=== PATIENT | female | born 1945 | race Caucasian/White ===

== ENCOUNTER 2019-03-04 08:32 | Inpatient (IN) | payer OTHER ==
[~2019-03-04] VITALS: Ht 149.9 cm; Wt 72.0 kg
[~2019-03-04 08:32] MED LIST: "\\\"WATER PILL\\\""; ALBU90OI INH; BP MEDICATION; BUSP5 PO; DILTIAZEM 24HR240 M4 PO; ESTR1 PO; Estradiol0.5 MG PO; FLUT1DIS8 INH; FURO40 PO; MONTELUKAST SOD10 MG PO; Mucinex600 MG PO; OMEPRAZOLE20 MG PO; PRED20 PO; SIME80CH PO; TIOT18 INH
[2019-03-04 09:28] LABS: Hematocrit 40.4 % (33.0-51.0); Hemoglobin 13.6 g/dL (11.5-16.0); Mean Corpuscular HGB 30.8 pg (26.0-34.0); Mean Corpuscular HGB Conc 33.7 g/dL (31.5-36.5); Mean Corpuscular Volume 91 fL (80-100); Mean Platelet Volume 9.5 fL (9.1-12.4); Platelet Count 225 K/mm3 (150-400); RDW Coefficient Variation 13.2 % (11.7-14.2); RDW Standard Deviation 44.6 fL (35.1-46.3); Red Blood Cell Count 4.42 M/mm3 (3.80-5.20); White Blood Cell Count 28.51 K/mm3 (4.00-11.30)
[2019-03-04 09:45] LABS: Albumin/Globulin Ratio 0.9 (0.8-1.8); Bilirubin, Total 1.1 mg/dL (0.1-1.0); Bun/Creatinine Ratio 11.4 (12.0-20.0); Calcium, Blood 8.7 mg/dL (8.5-10.1); Creatinine, Blood 1.05 mg/dL (0.40-1.00); Globulin, Blood 3.4 g/dL (2.2-4.0); Potassium, Blood 3.1 mmol/L (3.5-5.5); Total Protein, Blood 6.4 g/dL (6.4-8.2)
[2019-03-04 09:50] LABS: BAND PERCENT MAN 20 % (0-8); BASOPHILS PERCENT MAN 0 % (0-2); EOSINOPHILS PERCENT MAN 0 % (0-6); LYMPHOCYTES ABSOLUTE MAN 1.14 K/mm3 (0.84-5.20); LYMPHOCYTES PERCENT MAN 4 % (21-46); MONOCYTES ABSOLUTE MAN 1.42 K/mm3 (0.16-1.47); MONOCYTES PERCENT MAN 5 % (4-13); NEUTROPHILS ABSOLUTE MAN 25.94 K/mm3 (1.96-9.15); SEG NEUTROPHILS PERCENT MAN 71 % (41-73); TOTAL CELLS COUNTED 100
[2019-03-04] MEDS ORDERED: AZIT250 PO (12:28)
--- NOTE | 2019-03-04 13:00 | NUR ---
PT ARRIVES TO UNIT FROM ER AT 1245. PT ON BIPAP 01/18 45%. A&OX 4. ANSWERS QUESTIONS APPROPRIATELY. FOLLOWS COMMANDS. DENIES PAIN. REPORTS SOB IMPROVED SINCE WEARING BIPAP MASK. REPORTS HOME O2 USE AT NIGHT, 2L. HX OF COPD. PT SPEAKING IN SHORT SENTANCES, BECAME TACHYPNEIC AND INCREASED SOB WHEN TAKEN OFF BIPAP FOR TRANSFER TO BED FROM [facility]. LUNGS COARSE THROUGHOUT c RHONCI. WET COUGH NOTED. DISHA. VSS. WILL CONTINUE TO MONITOR.
[2019-03-04 17:34] LABS: Influenza A Negative (NEGATIVE); Influenza B Negative (NEGATIVE)
--- NOTE | 2019-03-04 18:10 | NUR ---
SHIFT SUMMARY PT REMAINS ON BIPAP 01/18 35%. ATTEMPTED TO TAKE PT OFF FOR SHORT PERIOD OF TIME, PT REQUESTING TO REPLACE BIPAP AFTER LESS THAN 5 MINUTES. LUNGS REMAIN COARSE c RHOCHI. NON PRODUCTIVE COUGH. SPEAKING IN FULL SENTANCES. REPORTS SOB IMPROVED c BIPAP. ASSISTED PT TO GET TO BEDSIDE COMMODE THIS SHIFT. PT TOLERATED WELL. FAMILY AT BEDSIDE. VSS. REPORT TO ONCOMING NURSE.
--- NOTE | 2019-03-04 19:47 | NUR ---
ASSUME CARE RECEIVED REPORT FROM MARITZA SEBASTIAN. PT PRESENTS IN BED WITH BIPAP ON. 01/26 35% WITH SATS ABOVE 925. A&OX4. TEMP 98. NSR ON MONITOR. VSS. L WRIST IV FLUSHED AND DRAWS BACK, WORKING WELL. R AC IV INFUSING NS AT 150/HR. PT ASKED TO BE REPOSITIONED TO SLEEP AND FAMILY LEFT BEDSIDE. WILL CONTINUE TO MONITOR.
--- NOTE | 2019-03-04 21:53 | NUR ---
ASSUMED CARE OF PT PT SLEEPING WITH BIPAP ON. BIPAP SETTINGS 01/18 RATE 14 FIO2 35%. VSS. PT MOVING AND TURNING SELF IN BED.
--- NOTE | 2019-03-05 00:10 | NUR ---
REASSESSMENT PT RESTING QUIETLY ON THE BIPAP. UP TO BSC WITH ONE ASSIST. VOIDED DARK NENA URINE. BACK TO BED. PT CONT TO USE BIPAP WHILE GETTING UP. PT STATES,"IT HELPS ME NOT GET SO WINDED". DENIES PAIN OR DISCOMFORT. LUNGS COARSE AND DECREASED. RESP EVEN AND NONLABORED. BIPAP REMOVED FOR ORAL CARE THAN REPLACED. SOLUMEDROL GIVEN AND FLAGYL STARTED. PT BACK TO SLEEP QUICKLY.
[2019-03-05 03:43] LABS: BASOPHILS ABSOLUTE AUTO 0.04 K/mm3 (0.00-0.23); BASOPHILS PERCENT AUTO 0 % (0-2); EOSINOPHILS PERCENT AUTO 0 % (0-6); Hematocrit 34.7 % (33.0-51.0); Hemoglobin 11.6 g/dL (11.5-16.0); IMMATURE GRAN ABSOLUTE AUTO 0.36 K/mm3 (0.00-0.10); IMMATURE GRAN PERCENT AUTO 2 % (0-1); LYMPHOCYTES ABSOLUTE AUTO 0.35 K/mm3 (0.84-5.20); LYMPHOCYTES PERCENT AUTO 2 % (21-46); MONOCYTES PERCENT AUTO 4 % (4-13); Mean Corpuscular HGB 30.8 pg (26.0-34.0); Mean Corpuscular HGB Conc 33.4 g/dL (31.5-36.5); Mean Corpuscular Volume 92 fL (80-100); Mean Platelet Volume 9.8 fL (9.1-12.4); NEUTROPHILS PERCENT AUTO 93 % (41-73); Platelet Count 190 K/mm3 (150-400); RDW Coefficient Variation 13.1 % (11.7-14.2); RDW Standard Deviation 44.2 fL (35.1-46.3); Red Blood Cell Count 3.77 M/mm3 (3.80-5.20); White Blood Cell Count 21.95 K/mm3 (4.00-11.30)
--- NOTE | 2019-03-05 03:46 | NUR ---
REASSESSMENT PT RESTING QUIETLY WITH BIPAP ON. VSS. REPOSITIONED AND MOUTH CARE DONE. LABS DRAWN. PT DENEIS PAIN OR DISCOMFORT. LUNGS CONT COARSE.
[2019-03-05 04:08] LABS: Alanine Aminotransfer (ALT/SGP 17 U/L (12-78); Albumin, Blood 2.5 g/dL (3.4-5.0); Albumin/Globulin Ratio 0.7 (0.8-1.8); Alk Phos 69 U/L (50-136); Anion Gap 6 mmol/L (6-16); Aspartate Aminotrans (AST/SGOT 10 U/L (12-37); Bilirubin, Total 0.5 mg/dL (0.1-1.0); Blood Urea Nitrogen 11 mg/dL (8-24); Bun/Creatinine Ratio 19.2 (12.0-20.0); CO2, Blood 24 mmol/L (21-32); Calcium, Blood 8.5 mg/dL (8.5-10.1); Chloride, Blood 112 mmol/L (98-108); Creatinine, Blood 0.57 mg/dL (0.40-1.00); Globulin, Blood 3.4 g/dL (2.2-4.0); Glomerular Filtration Rate >60 (60-); Glucose, Blood 127 mg/dL (70-99); Potassium, Blood 3.5 mmol/L (3.5-5.5); Sodium, Blood 142 mmol/L (136-145); Total Protein, Blood 5.9 g/dL (6.4-8.2); Vancomycin, Random 5.4 ug/mL
--- NOTE | 2019-03-05 06:31 | NUR ---
SHIFT SUMMARY ASSUMED CARE OF PT AT 2200. PT RESTED QUIETLY DURING THE NIGHT WHILE USING THE BIPAP. BIPAP SETTINGS / RATE OF 14 FIO2 35%. LUNGS REMAIN COARSE AND DECREASED IN THE BASES. PT UP TO BSC WITH STANDBY ASSIST AND BIPAP. VSS. REPORT TO ON COMING NURSE
--- NOTE | 2019-03-05 08:00 | NUR ---
Received report from Tracy SALAS. Patient sleeping with BIPAP in place/6 at 25% and sats upper 90%s. She awakens to verbal stimuli and is able to communicate her needs. She stateted she slept really well last nite. She has 18ga RAC dressing intact and site WNL's and is infusing NS at 100ml/hr and NS TKO with intermitent Abx.. She has SCD's to calves bilaterally. She also has FS LW dressing intact and site WNL's and is flushed and SL'd.
--- NOTE | 2019-03-05 11:46 | NUR ---
Dr Mills by to see patient, RT trailing on RA. She has been changed to medical status no tele and has regular diet. VSS. No other significant changes. Medicated per mar for arthritic pain.
--- NOTE | 2019-03-05 13:59 | NUR ---
Patient had tolerated RA by Rt for short period and asked to be placed back on M series BIPAP and tolerated well. VSS. Family as been in and out of room between patient resting. She will be going to [facility]. calling for report. NS at 150ml/hr.
--- NOTE | 2019-03-05 14:46 | NUR ---
Patient transfered to [place] [id number] in wheelchair on 2L O2 via NC and sats mid 90%'s. VSS. Her belongings taken by daughter to room. Took M series up to room and told Sherrill SALAS tell tell RN that NS at 150ml/hr needs to be started as her liter was almost done and disconnected prior to going upstairs.
--- NOTE | 2019-03-05 18:28 | NUR ---
SHIFT SUMMARY PATIENT IS DOING WELL IN THE ROOM. SHE IS VISITING WITH FAMILY. ABLE TO MAKE HER NEEDS KNOWN. NO ACUTE ISSUES.
--- NOTE | 2019-03-06 06:51 | NUR ---
Pt. gave student permission for care on 2019 at 2019 0640.
--- NOTE | 2019-03-06 07:58 | NUR ---
NOTED PATIENT HR TO BE IN 120'S. OXYGEN IN 80'S. PLACED PATIENT ON BIPAP NOTIFIED RT. REEVALUATED PATIENT AND NOTED THE HR TO BE AT 105, O2 AT 94%. RT GIVING BREATHING TREATMENT.
--- NOTE | 2019-03-06 08:02 | NUR ---
PT was transferred from ICU yesterday where she has Pneumonia and is on antibiotics to tx, IV fluids at 150 ml hr, Boixx with pulse oximetry. Desatted this AM despite 2 l NC to 84 %. Pulse tachycardic with hypoxia. Bipap applied with helpful effect. Neb tx and therapy per RT. Family at bedside supportive.
[2019-03-06 08:22] LABS: BASOPHILS ABSOLUTE AUTO 0.03 K/mm3 (0.00-0.23); BASOPHILS PERCENT AUTO 0 % (0-2); EOSINOPHILS PERCENT AUTO 0 % (0-6); Hematocrit 33.6 % (33.0-51.0); IMMATURE GRAN ABSOLUTE AUTO 0.24 K/mm3 (0.00-0.10); IMMATURE GRAN PERCENT AUTO 1 % (0-1); LYMPHOCYTES ABSOLUTE AUTO 0.33 K/mm3 (0.84-5.20); LYMPHOCYTES PERCENT AUTO 2 % (21-46); MONOCYTES ABSOLUTE AUTO 0.71 K/mm3 (0.16-1.47); MONOCYTES PERCENT AUTO 4 % (4-13); Mean Corpuscular HGB 30.3 pg (26.0-34.0); Mean Corpuscular HGB Conc 32.7 g/dL (31.5-36.5); Mean Corpuscular Volume 93 fL (80-100); Mean Platelet Volume 10.2 fL (9.1-12.4); NEUTROPHILS ABSOLUTE AUTO 19.06 K/mm3 (1.96-9.15); NEUTROPHILS PERCENT AUTO 94 % (41-73); Platelet Count 207 K/mm3 (150-400); RDW Coefficient Variation 13.2 % (11.7-14.2); RDW Standard Deviation 45.2 fL (35.1-46.3); Red Blood Cell Count 3.63 M/mm3 (3.80-5.20); White Blood Cell Count 20.37 K/mm3 (4.00-11.30)
[2019-03-06 08:48] LABS: Vancomycin, Trough 10.2 ug/mL (5.0-10.0)
[2019-03-06 09:00] LABS: Anion Gap 10 mmol/L (6-16); Blood Urea Nitrogen 15 mg/dL (8-24); Bun/Creatinine Ratio 33.3 (12.0-20.0); CO2, Blood 19 mmol/L (21-32); Calcium, Blood 8.9 mg/dL (8.5-10.1); Chloride, Blood 115 mmol/L (98-108); Creatinine, Blood 0.45 mg/dL (0.40-1.00); Glomerular Filtration Rate >60 (60-); Glucose, Blood 121 mg/dL (70-99); Potassium, Blood 3.5 mmol/L (3.5-5.5); Sodium, Blood 144 mmol/L (136-145)
--- NOTE | 2019-03-06 18:05 | NUR ---
SHIFT SUMMARY PATIENT HAS BEEN ON 02 THROUGHOUT THE DAY. SHE HAS WORKED WITH RT. PATIENT IS TOLERATING THIS WELL. FAMILY IS AT BEDSIDE THROUGHOUT THE DAY. PATIENT GETS UP INDEPENDENTLY, AMBULATES SELF TO THE BATHROOM WITHOUT ISSUES.
--- NOTE | 2019-03-06 21:13 | NUR ---
1939 PT REQUESTING SLEEPING MEDICATION THAT SHE TAKES AT HOME, ALEJANDRA CALLED THE PERSON AT THE PT'S HOUSE WHO LOOKED AT THE BOTTLE AND SAID IT WAS BENADRYL [address] WILL SPEAK TO [address] AND GET ORDERED. PT DENIES NEED FOR ANYTHING ELSE AT THIS TIME. CALL LIGHT IN REACH. VISITORS IN ROOM.
--- NOTE | 2019-03-06 21:14 | NUR ---
2039 PT SITTING IN CHAIR AT BEDSIDE. REPORTS PAIN IN R SIDE, ULTRAM GIVEN. SLEEPING MEDICATION GIVEN. PT REQUESTED AND RECIEVED ICE WATER. PT REPORTS SOB WITH EXERTION, ON 3L O2 NC AT 94%. PRODUCTIVE COUGH, NOT SEEN BY ME YET, PT REPORTS IT IS PINK TINGED. SPUTUM SAMPLE THAT WAS SENT EARLIER WAS NOT ADEQUATE, NEED TO COLLECT ANOTHER SPECIMEN, PT AWARE, SAMPLE CUP GIVEN TO PT, SETUP TECHNICIAN AWARE. SCD'S IN ROOM BUT NOT ON PT AT THIS TIME, SHE IS IN BEDSIDE CHAIR AND WANTS THEM BACK ON WHEN SHE GETS BACK IN BED. IS IN ROOM. NO OTHER APPARENT SIGNS OF DISTRESS. CALL LIGHT IS IN REACH. VISITORS IN ROOM.
--- NOTE | 2019-03-06 22:11 | NUR ---
PT REPORTED IV WAS LEAKING. DC'D IV. RESTARTED NEW IV, PAIGE 22G, PT TOLERATED WELL. USED US TO START. PT UP TO BATHROOM WITH DAUGHTER NOW. NO OTHER APPARENT SIGNS OF DISTRESS. WILL CONT. TO MONITOR SITE IV WAS DC'D FROM.
--- NOTE | 2019-03-07 00:11 | NUR ---
ASSISTED PT TO BATHROOM AND BACK TO BED AGAIN. NO APPARENT SIGNS OF DISTRESS. CALL LIGHT IS IN REACH. VISITOR IN ROOM. PT DENIES NEED FOR ANYTHING ELSE AT THIS TIME.
--- NOTE | 2019-03-07 03:09 | NUR ---
0200 PT LYING IN BED, AWAKE, NO APPARENT SIGNS OF DISTRESS. CALL LIGHT IS IN REACH. VISITOR IN ROOM.
--- NOTE | 2019-03-07 03:10 | NUR ---
PT AAO X 4, ON 3L O2 NC, WEARS BIPAP AT NOC AND PRN. PAIN IN R SIDE, GOT ULTRAM AT HS. SOB WITH EXERTION, BIOX IS 94%. IV WAS LEAKING, DC'D AND RESTARTED AT HS. SCD'S, INCENTIVE SPIROMETER, CONT. BIOX. NEEDS SPUTUM CX. LAST BM 03/02, PT DRANK SOME PRUNE JUICE AT HS, NO RESULTS YET. NO BOWEL CARE ORDERED AT THIS TIME, WILL ATTEMPT TO GET SOME WHEN SOMEONE TALKS TO THE DR NEXT. PT STATED THAT SHE HAS A SLOW GI TRACT AND THAT THIS IS HER NORMAL FOR BM'S, I EXPLAINED TO THE PT THAT WE START TO GET WORRIED AND GIVE MEDS WHEN IT HAS BEEN MORE THAN 3 DAYS.
--- NOTE | 2019-03-07 04:33 | NUR ---
PT LYING IN BED, AWAKE. PT REQUESTED SCD'S BE REMOVED, I REMOVED THEM. NO OTHER APPARENT SIGNS OF DISTRESS. VISITOR IN ROOM. PT DENIES NEED FOR ANYTHING ELSE AT THIS TIME. CALL LIGHT IS IN REACH.
[2019-03-07 05:06] LABS: BASOPHILS ABSOLUTE AUTO 0.03 K/mm3 (0.00-0.23); BASOPHILS PERCENT AUTO 0 % (0-2); EOSINOPHILS PERCENT AUTO 0 % (0-6); Hematocrit 33.7 % (33.0-51.0); Hemoglobin 11.1 g/dL (11.5-16.0); IMMATURE GRAN ABSOLUTE AUTO 0.35 K/mm3 (0.00-0.10); IMMATURE GRAN PERCENT AUTO 2 % (0-1); LYMPHOCYTES ABSOLUTE AUTO 0.48 K/mm3 (0.84-5.20); LYMPHOCYTES PERCENT AUTO 3 % (21-46); MONOCYTES ABSOLUTE AUTO 0.44 K/mm3 (0.16-1.47); MONOCYTES PERCENT AUTO 3 % (4-13); Mean Corpuscular HGB 30.1 pg (26.0-34.0); Mean Corpuscular HGB Conc 32.9 g/dL (31.5-36.5); Mean Corpuscular Volume 91 fL (80-100); Mean Platelet Volume 10.3 fL (9.1-12.4); NEUTROPHILS ABSOLUTE AUTO 16.03 K/mm3 (1.96-9.15); NEUTROPHILS PERCENT AUTO 93 % (41-73); Platelet Count 238 K/mm3 (150-400); RDW Coefficient Variation 13.2 % (11.7-14.2); RDW Standard Deviation 43.8 fL (35.1-46.3); Red Blood Cell Count 3.69 M/mm3 (3.80-5.20); White Blood Cell Count 17.33 K/mm3 (4.00-11.30)
[2019-03-07 05:31] LABS: Anion Gap 7 mmol/L (6-16); Blood Urea Nitrogen 15 mg/dL (8-24); Bun/Creatinine Ratio 34.2 (12.0-20.0); CO2, Blood 22 mmol/L (21-32); Calcium, Blood 9.2 mg/dL (8.5-10.1); Chloride, Blood 112 mmol/L (98-108); Creatinine, Blood 0.44 mg/dL (0.40-1.00); Glomerular Filtration Rate >60 (60-); Glucose, Blood 168 mg/dL (70-99); Potassium, Blood 3.2 mmol/L (3.5-5.5); Sodium, Blood 141 mmol/L (136-145)
--- NOTE | 2019-03-07 06:27 | NUR ---
PT LYING IN BED, EYES CLOSED, APPEARS TO BE RESTING. BREATHING IS EVEN, UNLABORED. NO APPARENT SIGNS OF DISTRESS. CALL LIGHT IS IN REACH. VISITOR IS IN ROOM. NO OTHER CHANGES THIS SHIFT.
--- NOTE | 2019-03-07 18:23 | NUR ---
SHIFT SUMMARY PATIENT DENIES PAIN, NAUSEA, AND SHORTNESS OF BREATH. PATIENT MEDICATED X1 FOR COUGH. PATIENT UP SBA TO BR. UP IN CHAIR FOR MEALS. PATIENT REPORTS SHE IS FEELING BETTER THAN YESTERDAY BUT STILL FATIGUES EASILY AND BECOMES SHORT OF BREATH WITH ACTIVITY. CARDIAC MEDICATION RESTARTED. ONE PRN DOSE OF HYDRALAZINE GIVEN THIS AM FOR HTN. CALL LIGHT IN REACH.
--- NOTE | 2019-03-08 01:11 | NUR ---
03/07/181929 PT SITTING IN CHAIR AT BEDSIDE, REPORTS PAIN IN R SIDE OF 4-5/10, WOULD LIKE HER PAIN MEDICATION WITH HER NIGHTTIME MEDS. DENIES NEED FOR ANYTHING ELSE AT THIS TIME. CALL LIGHT IS IN REACH. VISITORS IN ROOM.
--- NOTE | 2019-03-08 01:18 | NUR ---
03/07/192017 PT SITTING IN CHAIR AT BEDSIDE, REPORTS SOB WITH EXERTION, ON 2L O2 NC AT 95%. IS AND FLUTTER VALVE ON BEDSIDE TABLE, PT STATES SHE KNOWS HOW TO USE BOTH. SCD'S IN ROOM, PT DOES NOT HAVE ON YET BUT STATES SHE WILL PUT THEM ON WHEN SHE GETS IN BED. PT REPORTS PAIN IN R SIDE OF 4-5/10 THAT IS SHARP, ULTRAM GIVEN, WILL EVAL FOR EFFECT. TRACE EDEMA IN LE'S. PRODUCTIVE COUGH, SPUTUM NOT SEEN YET, PT REPORTS PINK TINGED. NO OTHER APPARENT SIGNS OF DISTRESS. PT DENIES NEED FOR ANYTHING ELSE AT THIS TIME. CALL LIGHT IS IN REACH. VISITOR IN ROOM.
--- NOTE | 2019-03-08 01:22 | NUR ---
03/07/19 2200 PT LYING IN BED, EYES CLOSED, APPEARS TO BE RESTING. BREATHING IS EVEN, UNLABORED. NO APPARENT SIGNS OF DISTRESS. CALL LIGHT IS IN REACH. VISITOR IN ROOM.
--- NOTE | 2019-03-08 01:23 | NUR ---
0100 PT LYING IN BED, WAKES EASILY TO VERBAL STIMULI. NO APPARENT SIGNS OF DISTRESS. CALL LIGHT IS IN REACH. PT DENIES NEED FOR ANYTHING ELSE AT THIS TIME. VISITOR IN ROOM.
--- NOTE | 2019-03-08 03:48 | NUR ---
0200 PT LYING IN BED, WAKES EASILY TO VERBAL STIMULI. NO APPARENT SIGNS OF DISTRESS. CALL LIGHT IS IN REACH. PT DENIES NEED FOR ANYTHING ELSE AT THIS TIME. VISITOR IS IN ROOM.
--- NOTE | 2019-03-08 03:49 | NUR ---
PT LYING IN BED, EYES CLOSED, APPEARS TO BE RESTING. BREATHING IS EVEN, UNLABORED. NO APPARENT SIGNS OF DISTRESS. CALL LIGHT IS IN REACH. VISITOR IS IN ROOM.
--- NOTE | 2019-03-08 03:49 | NUR ---
PT IS AAO X 4. SOB WITH EXERTION, ON 2L O2 NC AT 96%. R SIDE PAIN, GOT ULTRAM X 1. SCD'S, IS, FLUTTER VALVE. PT REPORTS DR SAID SHE DOES NOT NEED TO WEAR THE BIPAP ANYMORE. CONT BIOX ON.
[2019-03-08 04:25] LABS: BASOPHILS ABSOLUTE AUTO 0.06 K/mm3 (0.00-0.23); BASOPHILS PERCENT AUTO 1 % (0-2); EOSINOPHILS PERCENT AUTO 0 % (0-6); Hematocrit 34.7 % (33.0-51.0); Hemoglobin 11.5 g/dL (11.5-16.0); IMMATURE GRAN ABSOLUTE AUTO 0.42 K/mm3 (0.00-0.10); IMMATURE GRAN PERCENT AUTO 3 % (0-1); LYMPHOCYTES ABSOLUTE AUTO 0.46 K/mm3 (0.84-5.20); LYMPHOCYTES PERCENT AUTO 4 % (21-46); MONOCYTES ABSOLUTE AUTO 0.47 K/mm3 (0.16-1.47); MONOCYTES PERCENT AUTO 4 % (4-13); Mean Corpuscular HGB 30.2 pg (26.0-34.0); Mean Corpuscular HGB Conc 33.1 g/dL (31.5-36.5); Mean Corpuscular Volume 91 fL (80-100); NEUTROPHILS ABSOLUTE AUTO 11.01 K/mm3 (1.96-9.15); NEUTROPHILS PERCENT AUTO 89 % (41-73); Platelet Count 237 K/mm3 (150-400); RDW Coefficient Variation 13.2 % (11.7-14.2); RDW Standard Deviation 44.2 fL (35.1-46.3); Red Blood Cell Count 3.81 M/mm3 (3.80-5.20); White Blood Cell Count 12.42 K/mm3 (4.00-11.30)
[2019-03-08 04:40] LABS: Anion Gap 5 mmol/L (6-16); Blood Urea Nitrogen 15 mg/dL (8-24); Bun/Creatinine Ratio 33.5 (12.0-20.0); CO2, Blood 28 mmol/L (21-32); Calcium, Blood 8.9 mg/dL (8.5-10.1); Chloride, Blood 110 mmol/L (98-108); Creatinine, Blood 0.45 mg/dL (0.40-1.00); Glomerular Filtration Rate >60 (60-); Glucose, Blood 147 mg/dL (70-99); Magnesium, Blood 1.9 mg/dL (1.6-2.4); Potassium, Blood 3.5 mmol/L (3.5-5.5); Sodium, Blood 143 mmol/L (136-145)
--- NOTE | 2019-03-08 06:26 | NUR ---
PT LYING IN BED, EYES CLOSED, APPEARS TO BE RESTING. BREATHING IS EVEN, UNLABOORED. NO APPARENT SIGNS OF DISTRESS. CALL LIGHT IS IN REACH. VISITOR IS IN ROOM. NO OTHER CHANGES THIS SHIFT.
[2019-03-08] MEDS ORDERED: Acetaminophen325 M1 PO (12:01)
[2019-03-08] MEDS ORDERED: GUAI600T33 PO (12:01)
[2019-03-08] MEDS ORDERED: Duoneb 2.5-0.5 M3 ML NEB (12:02)
[2019-03-08] MEDS ORDERED: TRAM50 PO (12:03)
[2019-03-08] MEDS ORDERED: Florastor250 MG PO (12:03)
[2019-03-08] MEDS ORDERED: AMOCLA875 PO (12:04)
--- NOTE | 2019-03-08 13:23 | NUR ---
DISCHARGE DISCHARGE MEDICATIONS AND INSTRUCTIONS EXPLAINED TO PATIENT. PATIENT STATED UNDERSTANDING. FOLLOW UP APPOINTMENT SCHEDULED WITH PCP. IV REMOVED WITHOUT DIFFICULTY. BELONGINGS WITH PATIENT. PATIENT TRANSFERED TO PRIVATE VEHICLE VIA WHEELCHAIR.
== END 2019-03-08 13:10 | disposition home or self-care (01) | DRG 871 ==
LOC: ER 08:32 → ICUW 11:49 → MEDS 03-05 14:55
PROVIDERS: Emergency Medicine; Nurse Practitioner Acute Care; ADMIT Internal Medicine
PROC: 5A09357 Assistance with Respiratory Ventilation, Less than 24 Consecutive Hours, Continuous Positive Airway Pressure (ICD-10-PCS; principal; 2019-03-04)
DX: A41.9 Sepsis, unspecified organism (principal); J18.9 Pneumonia, unspecified organism; J96.21 Acute and chronic respiratory failure with hypoxia; J44.0 Chronic obstructive pulmonary disease with (acute) lower respiratory infection; J44.1 Chronic obstructive pulmonary disease with (acute) exacerbation; R65.20 Severe sepsis without septic shock; F32.9 Major depressive disorder, single episode, unspecified; K21.9 Gastro-esophageal reflux disease without esophagitis; I10 Essential (primary) hypertension; E87.6 Hypokalemia; G47.33 Obstructive sleep apnea (adult) (pediatric); F41.1 Generalized anxiety disorder; E83.42 Hypomagnesemia; Z99.81 Dependence on supplemental oxygen; Z79.51 Long term (current) use of inhaled steroids; Z79.52 Long term (current) use of systemic steroids; Z79.899 Other long term (current) drug therapy; Z87.891 Personal history of nicotine dependence
CPT/HCPCS: 36415; 71045; 76705; 80048; 80053; 80202; 83605; 83690; 83735; 84145; 85025; 87040; 87804; 94640; 94660; 94667; 94761; 94762; 96361; 96365; 96367; 96375; 99285-25; A9270; J0360; J0456; J0696; J1650; J2060; J2405; J2930; J3010; J3370; J3475; J3480; J7030; J7050; Q0163

== ENCOUNTER 2020-02-14 15:52 | Inpatient (IN) | payer OTHER, SELFPAY ==
[~2020-02-14] VITALS: Ht 149.9 cm; Wt 55.5 kg
[~2020-02-14 15:52] MED LIST changes: +AMOCLA875 PO; +AZIT250 PO; +Acetaminophen325 M1 PO; +Duoneb 2.5-0.5 M3 ML NEB; +Florastor250 MG PO; +GUAI600T33 PO; +TRAM50 PO
[2020-02-14 16:46] LABS: BASOPHILS PERCENT AUTO 0 % (0-2); EOSINOPHILS PERCENT AUTO 0 % (0-6); Hematocrit 38.9 % (33.0-51.0); Hemoglobin 13.2 g/dL (11.5-16.0); IMMATURE GRAN ABSOLUTE AUTO 0.02 K/mm3 (0.00-0.10); IMMATURE GRAN PERCENT AUTO 0 % (0-1); LYMPHOCYTES ABSOLUTE AUTO 0.51 K/mm3 (0.84-5.20); LYMPHOCYTES PERCENT AUTO 7 % (21-46); MONOCYTES ABSOLUTE AUTO 0.32 K/mm3 (0.16-1.47); MONOCYTES PERCENT AUTO 4 % (4-13); Mean Corpuscular HGB 30.5 pg (26.0-34.0); Mean Corpuscular HGB Conc 33.9 g/dL (31.5-36.5); Mean Corpuscular Volume 90 fL (80-100); Mean Platelet Volume 9.8 fL (9.1-12.4); NEUTROPHILS ABSOLUTE AUTO 6.55 K/mm3 (1.96-9.15); NEUTROPHILS PERCENT AUTO 89 % (41-73); Platelet Count 185 K/mm3 (150-400); RDW Coefficient Variation 12.5 % (11.7-14.2); RDW Standard Deviation 41.3 fL (35.1-46.3); Red Blood Cell Count 4.33 M/mm3 (3.80-5.20)
[2020-02-14 17:12] LABS: Alanine Aminotransfer (ALT/SGP 52 U/L (12-78); Albumin/Globulin Ratio 0.8 (0.8-1.8); Alk Phos 104 U/L (50-136); Anion Gap 10 mmol/L (6-16); Aspartate Aminotrans (AST/SGOT 49 U/L (12-37); Bilirubin, Total 0.4 mg/dL (0.1-1.0); Blood Urea Nitrogen 12 mg/dL (8-24); Bun/Creatinine Ratio 18.2 (12.0-20.0); CO2, Blood 23 mmol/L (21-32); Calcium, Blood 8.8 mg/dL (8.5-10.1); Chloride, Blood 102 mmol/L (98-108); Creatinine, Blood 0.66 mg/dL (0.40-1.00); Globulin, Blood 3.8 g/dL (2.2-4.0); Glomerular Filtration Rate >60 (60-); Glucose, Blood 146 mg/dL (70-99); Potassium, Blood 3.1 mmol/L (3.5-5.5); Sodium, Blood 135 mmol/L (136-145); Total Protein, Blood 6.8 g/dL (6.4-8.2)
[2020-02-14 18:20] LABS: PCO2 Arterial 32.5 mmHg (35-45); PO2 Arterial 54.6 mmHg (80-100); pH Blood Arterial 7.49 (7.35-7.45)
[2020-02-14] MEDS ORDERED: ALBU3IS INH (19:23)
[2020-02-14] MEDS ORDERED: BUSPIRONE HCL10 MG PO (19:24)
[2020-02-14] MEDS ORDERED: Cardizem CD 24240 MG PO (19:25)
[2020-02-14] MEDS ORDERED: ESTRADIOL0.5 MG PO (19:26)
[2020-02-14] MEDS ORDERED: FLUT1DIS8 INH (19:27)
[2020-02-14] MEDS ORDERED: FUROSEMIDE40 MG PO (19:29)
[2020-02-14] MEDS ORDERED: Iprat-Albut 0.5-3(2. INH (19:30)
[2020-02-14] MEDS ORDERED: MONT10T PO (19:31)
[2020-02-14] MEDS ORDERED: OMEP20ER PO (19:32)
[2020-02-15 06:35] LABS: BASOPHILS PERCENT AUTO 0 % (0-2); EOSINOPHILS PERCENT AUTO 0 % (0-6); Hematocrit 41.6 % (33.0-51.0); Hemoglobin 13.9 g/dL (11.5-16.0); IMMATURE GRAN ABSOLUTE AUTO 0.01 K/mm3 (0.00-0.10); IMMATURE GRAN PERCENT AUTO 0 % (0-1); LYMPHOCYTES ABSOLUTE AUTO 0.34 K/mm3 (0.84-5.20); LYMPHOCYTES PERCENT AUTO 9 % (21-46); MONOCYTES ABSOLUTE AUTO 0.15 K/mm3 (0.16-1.47); MONOCYTES PERCENT AUTO 4 % (4-13); Mean Corpuscular HGB 29.9 pg (26.0-34.0); Mean Corpuscular HGB Conc 33.4 g/dL (31.5-36.5); Mean Corpuscular Volume 90 fL (80-100); Mean Platelet Volume 9.6 fL (9.1-12.4); NEUTROPHILS ABSOLUTE AUTO 3.31 K/mm3 (1.96-9.15); NEUTROPHILS PERCENT AUTO 87 % (41-73); Platelet Count 252 K/mm3 (150-400); RDW Coefficient Variation 12.4 % (11.7-14.2); RDW Standard Deviation 40.8 fL (35.1-46.3); Red Blood Cell Count 4.65 M/mm3 (3.80-5.20); White Blood Cell Count 3.81 K/mm3 (4.00-11.30)
--- NOTE | 2020-02-15 06:35 | NUR ---
SHIFT SUMMARY: VSS. AFEB. DESATS W/ EXERTION, 02 LOW 85% ON WHEN AMBULATING, RETURNS TO LOW 90'S AT REST. INTERMITTENT COUGH PRODUCING THICK WHITE SPUTUM. INCENTIVE SPIROMETER ENCOURAGED AND PLACED AT BEDSIDE. PT UP AMB IND IN ROOM, CALLS FOR ASSIST WHILE IV IS INFUSING TO HELP MANAGE LINES. APPEARS TO HAVE SLEPT WELL. DENIES CHEST PAIN OR PRESSURE. NRS 93 PER TELE MONITOR. NO ACUTE CONCERNS AT THIS TIME. PT REMAINS AA0X4. MAKIND NEEDS KNOWN APPROPRIATELY.
[2020-02-15 06:55] LABS: Anion Gap 7 mmol/L (6-16); Blood Urea Nitrogen 12 mg/dL (8-24); Bun/Creatinine Ratio 21.7 (12.0-20.0); CO2, Blood 27 mmol/L (21-32); Calcium, Blood 9.3 mg/dL (8.5-10.1); Chloride, Blood 108 mmol/L (98-108); Creatinine, Blood 0.55 mg/dL (0.40-1.00); Glomerular Filtration Rate >60 (60-); Glucose, Blood 132 mg/dL (70-99); Magnesium, Blood 2.3 mg/dL (1.6-2.4); Potassium, Blood 3.7 mmol/L (3.5-5.5); Sodium, Blood 142 mmol/L (136-145)
--- NOTE | 2020-02-15 15:12 | NUR ---
SUMMARY PT IS A/O X4, PLEASANT AFFECT. SHE STATE CONTINUING SOHRTNESS OF BREATH @ REST THAT INCREASES w EXERTION HOWEVER STATE IMPROVED FROM PREVIOUS DAY. O2 @ 5L N/C BIOX 92% @ REST, w ACTIVITY DROPS TO 85-88%, SHE RECOVERS QUICKLY. HX COPD, CURRENT DX COVID19, SHE IS GETTING ORAL DECADRON & IV REMDESIVIR. SHE STATE CONTINUING COUGH PRODUCTIVE, SCHEDULED MUCINEX & PRN ROBITUSSIN DM GIVEN FOR RELIEF. PT EDUCATED ON USE OF INCENTIVE SPIROMETER & FLUTTER, SHE STATE KNOWLEDGE OF, STATE USES @ HOME WELL. VSS/AFEBRILE.
--- NOTE | 2020-02-16 05:13 | NUR ---
SHIFT SUMMARY: VSS. AFEB. 02 90% ON 4.5L. PT REQUESTED NEB FROM RT X 1 FOR SOB. FAN ON. PT STATES HELPFUL. RESPS REGULAR, NON-LABORED AT THIS TIME. OCC HACKING COUGH PRODUCING SMALL AMT OF BROWN SPUTUM- PT STATES SPUTUM COLOR IS CONSISTENT W/ BASELINE SPUTUM PRODUCTION. DENIES CHEST TIGHTNESS. TELE SHOWING NSR, 67. PT UP AMB INDEPENDENTLY IN ROOM. TYSON ACTIVITY WELL W/ [address] VIA NC. NO ACUTE CONCERNS AT THIS TIME.
--- NOTE | 2020-02-16 09:48 | NUR ---
AM ASSESSMENT PT UP IND TO BR, PERFORM AM ADLS. EAT 50% BF. SHE STATE BREATHING CONTINUES TO IMPROVE, LESS SOB, STATE CONTINUING PROD COUGH. STATES PRN ROBITUSSIN DM HAS BEEN EFFECTIVE. SHE USES FLUTTER & INCENTSPIROM IND. SHE HAS TRIED LAYING ON HER STOMACH ENCOURAGED BY DR CHU. O2 @ 4.5L N/C, BIOX 90%
--- NOTE | 2020-02-16 15:46 | NUR ---
SUMMARY PT IS A/O X4, UP IND IN ROOM. SHE STATE SOB CONINUES HOWEVER MUCH IMPROVED FROM ADMIT, STATE MILD @ REST. COUGH CONTINUES, HAVE GIVEN ROBITUSSIN DM TWICE TODAY FOR CONTROL/RELIEF. LUNGS ARE DECREASED, SOMEWHAT COARSE BASES, BIOX 92% 4.5L. DR CHU IN TO ASSESS THIS AFTERNOON STATE POSSIBLE D/C TODAY AFTER IV REMDESIVIR COMPLETE. PT IS PLEASANT/COOPERATIVE, SATISFIED W PLAN. VSS.
--- NOTE | 2020-02-17 06:32 | NUR ---
SHIFT SUMMARY: VSS. AFEB. MAINTAINING 02 SATS 90-93% ON 3L VIA NC. SOB W/EXERTION BUT NOTES THAT SHE FEELS HER RESP EFFORT IS IMPROVED. LSCTA W/ DIM BASES. INFREQUENT COUGH- COUGH SYRUP ADMINISTERED X 2 TONIGHT. PT APPEARS TO HAVE SLEPT MOST OF THE NIGHT. NO ACUTE CONCERNS AT THIS TIME.
--- NOTE | 2020-02-17 16:58 | NUR ---
Spiritual care note: Mrs. Myers was in good spirits and hopes to be discharged tomorrow. she tells me that everyone in her household is ill but all are improving. She denied concerns/fears. She is non-mosque, but apeared to enjoy encouragment/affirmation. She is satisfied with her full code status. I will remain available.
--- NOTE | 2020-02-18 05:18 | NUR ---
MACHINE BASTER SUMMARY PT AAOX4 AND INDEPENDENT IN ROOM. DENIES PAIN, SOB, N/V. REMAINS ON 3L O2 VIA NC BUT PT REPORTS BREATHING IS MUCH IMPROVED. STATES SHE IS COUGHING ON OCCASION BUT NO LONGER PRODUCING THICK SPUTUM LIKE SHE WAS PREVIOUSLY. VSS, WILL CONTINUE TO MONITOR.
[2020-02-18] MEDS ORDERED: DECADRON6 M1 PO (12:49)
--- NOTE | 2020-02-18 15:35 | NUR ---
DISCHARGE DISCHARGE INSTRUCTIONS, MEDICATION LIST AND FOLLOW UP APPOINTMENT REVIEWED WITH PT. QUESTIONS/CONCERNS ANSWERED. PT VERBALLY INDICATED UNDERSTANDING OF ALL INSTRUCTIONS RECEVIED. PORTABLE O2 DELIVERED BY [facility], PT SWITCHED FROM WALL 02 TO PORTABLE. ESCORTED OUT VIA W/C BY JENSEN
[2020-07-07] MEDS ORDERED: Prednisone10 MG PO (10:03)
[2020-07-07] MEDS ORDERED: AMOX-CLAV 875-1 EAC5 PO (10:05)
[2020-07-07] MEDS ORDERED: AZIT250 PO (10:05)
== END 2020-02-18 14:10 | disposition home or self-care (01) | DRG 871 ==
LOC: ER 15:52 → MEDS 19:43
PROVIDERS: Emergency Medicine; ADMIT Internal Medicine
PROC: XW033E5 Introduction of Remdesivir Anti-infective into Peripheral Vein, Percutaneous Approach, New Technology Group 5 (ICD-10-PCS; principal; 2020-02-14)
PROC: 8E0ZXY6 Isolation (ICD-10-PCS; 2020-02-14)
DX: A41.89 Other specified sepsis (principal); U07.1 COVID-19; J96.21 Acute and chronic respiratory failure with hypoxia; J12.82 Pneumonia due to coronavirus disease 2019; J44.0 Chronic obstructive pulmonary disease with (acute) lower respiratory infection; E87.1 Hypo-osmolality and hyponatremia; R65.20 Severe sepsis without septic shock; K21.9 Gastro-esophageal reflux disease without esophagitis; I10 Essential (primary) hypertension; F41.8 Other specified anxiety disorders; E87.6 Hypokalemia; G47.33 Obstructive sleep apnea (adult) (pediatric); Z99.81 Dependence on supplemental oxygen; Z87.891 Personal history of nicotine dependence
CPT/HCPCS: 36415; 36600; 71045; 80048; 80053; 82803; 83735; 83880; 84145; 85025; 93005; 93010; 94640; 94664; 94667; 94668; 94760; 94761; 96374; 97162; 97165; 97530; 97535; 98960; 99285-25; A9270; J1100; J1650; J7050

== ENCOUNTER 2020-07-16 06:09 | Day surgery (SDC) | payer OTHER, SELFPAY ==
[~2020-07-16 06:09] MED LIST changes: +ALBU3IS INH; +AMOX-CLAV 875-1 EAC5 PO; +BUSPIRONE HCL10 MG PO; +Cardizem CD 24240 MG PO; +DECADRON6 M1 PO; +ESTRADIOL0.5 MG PO; +FUROSEMIDE40 MG PO; +Iprat-Albut 0.5-3(2. INH; +MONT10T PO; +OMEP20ER PO; +Prednisone10 MG PO
[2020-07-16] MEDS ORDERED: Percocet 5-3251 EACH PO (09:42)
[2020-07-16 10:20] LABS: BASOPHILS ABSOLUTE AUTO 0.03 K/mm3 (0.00-0.23); BASOPHILS PERCENT AUTO 0 % (0-2); EOSINOPHILS ABSOLUTE AUTO 0.09 K/mm3 (0.00-0.68); EOSINOPHILS PERCENT AUTO 1 % (0-6); Hematocrit 37.2 % (33.0-51.0); Hemoglobin 12.2 g/dL (11.5-16.0); IMMATURE GRAN ABSOLUTE AUTO 0.03 K/mm3 (0.00-0.10); IMMATURE GRAN PERCENT AUTO 0 % (0-1); LYMPHOCYTES ABSOLUTE AUTO 0.68 K/mm3 (0.84-5.20); LYMPHOCYTES PERCENT AUTO 8 % (21-46); MONOCYTES ABSOLUTE AUTO 0.25 K/mm3 (0.16-1.47); MONOCYTES PERCENT AUTO 3 % (4-13); Mean Corpuscular HGB Conc 32.8 g/dL (31.5-36.5); Mean Corpuscular Volume 92 fL (80-100); Mean Platelet Volume 9.2 fL (9.1-12.4); NEUTROPHILS ABSOLUTE AUTO 7.82 K/mm3 (1.96-9.15); NEUTROPHILS PERCENT AUTO 88 % (41-73); Platelet Count 205 K/mm3 (150-400); RDW Coefficient Variation 13.2 % (11.7-14.2); RDW Standard Deviation 44.7 fL (35.1-46.3); Red Blood Cell Count 4.06 M/mm3 (3.80-5.20)
--- NOTE | 2020-07-16 12:25 | NUR ---
VAGINAL PACKING DC'D AT THIS TIME, PT TOLERATED WELL
--- NOTE | 2020-07-16 16:33 | NUR ---
DISCHARGE: PT ABLE TO AMBULATE, VOID, TOLERATE PO AND IS DOING WELL POST OP. PER ORDER OK TO DISCHARGE. PER DR. FISHER PT OK TO RESTART HOME MEDS. IV DC'D WNL. DISCHARGE PACKET PRINTED AND PT EDUCATED. SCANT VAGINAL BLEED AFTER PACKING REMOVAL, JOSE PAD IN PLACE. PT LEFT UNIT AT ABOUT 1415 VIA WHEELCHAIR WITH JESSE STYLES.
== END 2020-07-16 14:29 | disposition home or self-care (01) ==
LOC: ORSCMMR 06:09 → ORD 09:30 → SURS 09:38 → ORSCMMR 14:29
PROVIDERS: Obstetrics & Gynecology
PROC: 0JQC0ZZ Repair Pelvic Region Subcutaneous Tissue and Fascia, Open Approach (ICD-10-PCS; principal; 2020-07-16 07:30)
DX: N81.11 Cystocele, midline (principal); N81.6 Rectocele; E78.5 Hyperlipidemia, unspecified; Z87.891 Personal history of nicotine dependence; I10 Essential (primary) hypertension; J44.9 Chronic obstructive pulmonary disease, unspecified; Z79.899 Other long term (current) drug therapy
CPT/HCPCS: 36415; 85025; A9270; J0171; J1100; J1885; J2250; J2405; J2704; J3010; J7120

== ENCOUNTER 2022-01-19 08:13 | Day surgery (SDC) | payer OTHER ==
[~2022-01-19] VITALS: Ht 149.9 cm; Wt 61.7 kg
[~2022-01-19 08:13] MED LIST changes: +Percocet 5-3251 EACH PO
[2022-01-19] MEDS ORDERED: ATOR20 PO (08:42)
--- NOTE | 2022-01-19 09:24 | NUR ---
PT A&OX4, CHATTING WITH STAFF. AMBULATORY IN DAY SURGERY UNIT. Surgical site prepped with 2% Chlorhexidine cloth wipe. History, Chart, Medications and Allergies reviewed before start of procedure.Lungs clear T/O to Auscultation. Patient confirms NPO status and agrees with scheduled surgery. Patient States Post-Procedure ride home has been arranged. Patient reports completing Chlorhexadine shower X2 prior to admission to hospital.
--- NOTE | 2022-01-19 12:07 | NUR ---
Patient up to Ambulate independently. Gait steady. Liyah Paws warming gown applied. Discharge instructions reviewed with patient. Patient verbalizes understanding. Copy given to patient to take home. Patient States Post-Procedure ride home has been arranged. Discharged via wheelchair to private car for ride home.
== END 2022-01-19 12:09 | disposition home or self-care (01) ==
LOC: ORSCMMR 08:13 → ORD 09:00 → ORSCMMR 09:00 → ORD 09:30 → ORSCMMR 12:09
PROVIDERS: Surgery
PROC: BF532Z0 Other Imaging of Gallbladder and Bile Ducts using Fluorescing Agent, Intraoperative (ICD-10-PCS; principal; 2022-01-19 09:30)
PROC: 0FT44ZZ Resection of Gallbladder, Percutaneous Endoscopic Approach (ICD-10-PCS; principal; 2022-01-19 09:30)
DX: K80.20 Calculus of gallbladder without cholecystitis without obstruction (principal); I10 Essential (primary) hypertension; G47.33 Obstructive sleep apnea (adult) (pediatric); J44.9 Chronic obstructive pulmonary disease, unspecified; Z87.891 Personal history of nicotine dependence; Z86.16 Personal history of COVID-19; Z79.899 Other long term (current) drug therapy; Z99.81 Dependence on supplemental oxygen
CPT/HCPCS: 74300; 88304; A9270; C1729; J0690; J1100; J2405; J2704; J2795; J3010; J7120

== ENCOUNTER → 2022-09-27 | Outpatient (CLI) | payer OTHER ==
[~2022-09-27] MED LIST changes: +ATOR20 PO
== END ==
LOC: LAB SHORT 08:16 → PLD 08:16
DX: R21 Rash and other nonspecific skin eruption (principal)
CPT/HCPCS: 88312